=== PATIENT | female | born 1970 | race Caucasian/White ===

== ENCOUNTER 2019-12-31 20:10 | Emergency (ER) | payer SELFPAY ==
--- NOTE | 2019-12-31 20:35 | NUR ---
PT RESUFING TO PARTICIPATIE IN TRIAGE. WHEN ASKED ASSESSMENT QUESTIONS PT YELLS "YOU GUYS ARE A BUNCH OF FUCKING ASSHOLES! YOU ASK ME THE SAME QUESTIONS OVER AND OVER! I WANT TO LEAVE!" PT YELLING AND CURSING. AMA PAPERWORK SIGNED AND ADDED TO PAPER CHART. ER ANTOINETTE MEREDITH NOTIFIED. PIV REMOVED AND PT GIVEN TAXI CAB VOUCHER.
== END 2019-12-31 20:43 | disposition left against medical advice (07) ==
LOC: ED 20:29
DX: M79.10 Myalgia, unspecified site (principal); G89.29 Other chronic pain; R00.0 Tachycardia, unspecified
CPT/HCPCS: 99283